=== PATIENT | male | born 1995 | race Caucasian/White ===

== ENCOUNTER → 2021-04-11 07:57 | Outpatient (CLI) | payer BC, SELFPAY ==
[2021-04-05 07:40] VITALS: BMI 28.9
--- NOTE | 2021-04-11 08:02 | CT_ITS ---
STUDY: CT ABDOMEN AND PELVIS WITH CONTRAST REASON FOR EXAM: Male, 25 years old. Epigastric pain/ Bilateral groin pain -- ATT: Epigastric/ bilateral groins RADIATION DOSAGE (If Supplied By Facility): CTDIvol = ( 11.71 ) mGy, DLP = ( 759.30 ) mGycm TECHNIQUE: Transaxial images were obtained from the dome of the diaphragm to the symphysis pubis with oral contrast. Oral and amp; IV Readi-CAT and amp; 100mL Isovue-300 was administered. Sagittal and coronal images were reconstructed. Individualized dose optimization techniques were used for this CT. COMPARISON: None. FINDINGS: The visualized lung bases are unremarkable. The visualized portions of the heart are within normal limits. Normal liver. Normal gallbladder and extrahepatic biliary system. Normal spleen. Normal pancreas. Normal bilateral adrenal glands. There is a mildly dilated right ureter down to the region of the urinary bladder although no obstructive uropathy is seen at this time. This may be secondary to a recently passed calculus. Clinical correlation is recommended. Normal left kidney. Normal visualized stomach. Normal small intestine. Normal colon. The appendix is visualized and appears normal. Normal abdominal aorta. Normal inferior vena cava. Normal retroperitoneum. Normal urinary bladder. Small benign appearing bilateral inguinal lymph nodes. Normal abdominal wall. Normal osseous structures. CT/Abdomen/Pelvis WITH Contrast IMPRESSION: Fullness of the right ureter as described. No obstructive calculus is seen. Electronically Signed: Teddy Jimenes MD at 9:10 EDT , Service support ,
== END ==
PROVIDERS: PCP Family Medicine; Referring Provider Surgery; Visit Provider Surgery
DX: R10.13 Epigastric pain (principal); R10.31 Right lower quadrant pain; R10.32 Left lower quadrant pain
CPT/HCPCS: 74177; Q9967

== ENCOUNTER → 2022-05-29 | Outpatient (CLI) | payer BC, SELFPAY ==
[2022-05-29 16:01] LABS: Absolute Lymphocyte Count 2.16 X10^3/uL (0.83-4.51); Absolute Neutrophil Count 3.7 X10^3/uL (2.0-7.7); Basophil# 0.06 X10^3/uL; Basophil% 0.9 % (0-1); Eosinophil# 0.18 X10^3/uL; Eosinophils% 2.6 % (0-5); Hematocrit 42.1 % (40-54); Hemoglobin 14.7 g/dL (13.0-16.5); Lymphocyte # 2.16 X10^3/ul (0.83-4.51); Lymphocyte % 31.6 % (19-41); Mean Corp Hgb Conc 34.9 g/dL (32-36); Mean Corpuscular Hgb 31.4 pg (27.0-32.0); Mean Platelet Vol. 9.3 fl (6.2-12.0); Monocyte# 0.67 X10^3/uL; Monocyte% 9.8 % (0-10); NRBC Flagged by Analyzer 0 % (0-5); Neutrophil # 3.74 X10^3/uL (2.7-7.7); Neutrophil % 54.8 % (47-70); Platelet Count 265 K/mm3 (150-450); RBC Distribution Width CV 11.6 % (11.6-14.6); Red Blood Count 4.68 M/mm3 (4.6-6.2); White Blood Count 6.8 K/mm3 (4.4-11.0)
[2022-05-29 16:16] LABS: Erythrocyte Sedimentation Rate 2 mm/hr (0-20)
[2022-05-29 16:54] LABS: ALB/GLOB Ratio 1.3 RATIO (0.9-2.4); AST(SGOT) 13 U/L (15-37); Alanine Aminotransfer ALT/SGPT 24 U/L (16-61); Albumin, Serum 4.3 g/dL (3.2-5.0); Alkaline Phosphatase 68 U/L (45-117); Anion Gap 3 (5-15); BUN 16 mg/dL (7-18); CRP < 2.90 mg/L (0.0-3.0); Calcium,Total 9.5 mg/dL (8.5-10.1); Chloride 106 mmol/L (98-107); EST Glomerular Filtration Rate 96 mL/min (>60); Est Glom Filt Rate - Afr Amer 116 mL/min (>60); Globulin 3.2 g/dL (2.2-4.2); Glucose 101 mg/dL (74-106); Potassium 3.8 mmol/L (3.5-5.1); Protein, Total 7.5 g/dL (6.4-8.2); Sodium Level 139 mmol/L (136-145)
[2022-05-31 15:08] LABS: Endomysial Antibody IgA Negative (Negative)
[2022-05-31 15:47] LABS: Immunoglobulin A 276 mg/dL (90-386); t-Transglutaminase IgA <2 U/mL (0-3)
== END | disposition home or self-care (01) ==
LOC: LAB 15:17
PROVIDERS: PCP Family Medicine; Visit Provider Nurse Practitioner Adult Health
DX: K21.9 Gastro-esophageal reflux disease without esophagitis (principal); R10.9 Unspecified abdominal pain
CPT/HCPCS: 36415; 80053; 82784; 83516; 85025; 85652; 86140; 86255

== ENCOUNTER 2022-05-31 12:26 | Outpatient (CLI) | payer BC, SELFPAY ==
[2022-06-04 10:43] LABS: Calprotectin, Stool 29 ug/g (0-120)
[2022-06-04 10:46] LABS: H. PYLORI STOOL AG Negative (Negative)
== END 2022-05-31 23:59 | disposition home or self-care (01) ==
LOC: LABSPEC 12:27
PROVIDERS: PCP Family Medicine; Referring Provider Nurse Practitioner Adult Health; Visit Provider Nurse Practitioner Adult Health
DX: K58.9 Irritable bowel syndrome, unspecified (principal); K21.9 Gastro-esophageal reflux disease without esophagitis; R10.9 Unspecified abdominal pain
CPT/HCPCS: 83630; 83993

== ENCOUNTER 2022-06-25 05:15 | Day surgery (SDC) | payer BC, SELFPAY ==
[2022-06-25] VITALS (7 sets, daily range): BP systolic 99–147; BP diastolic 64–82; PULSE 56–97; RESP 16–18; TEMP 36.3–36.6; O2SAT 96–100; BMI 25.0
--- NOTE | 2022-06-25 | EGD_PTH ---
PATIENT: AMELIA PINEDA LOC: EN U#:[id number] AGE/SX: 26/M ROOM: RE06/25/[address]: Dr. Eduardo Virk DO : 1995 BED: DIS: 06/25/2022 SPEC #: [id number] RECD: 06/25/22 12:36 STATUS: CASSIE REKvng #: [id number] SAVITA: 06/25/22 00:[address]: Eduardo Virk DEPT: SURGICAL PATHOLOGY RECD BY: John Ayon ENTERED: 06/25/22 12:37 SP TYPE: EGD BIOPSY OT DR: Dr. David Traylor DO Tissues: A - Duodenum, NOS B - Gastric mucous membrane C - Esophageal mucous membrane D - Ileum, NOS E - Sigmoid colon biopsy F - Rectum, NOS Procedures: Special Stain Group II Surgery Specimen Level IV Alcian Blue/PAS (control) HEADER OPERATION: Colonoscopy, EGD ([facility]) PRE-OP DIAGNOSIS: GERD, abdominal pain TISSUE SUBMITTED: A ? Duodenum biopsy, B ? Gastric body biopsy, C ? Distal esophagus biopsy, D ? Terminal ileum biopsy, E ? Sigmoid colon biopsy, F ? Rectum biopsy MICROSCOPIC DIAGNOSIS A. Duodenum, biopsy: A fragment of duodenal mucosa with mild Vijaya gland hyperplasia. B. Gastric body biopsy: Minimal gastritis. See microscopic description and comment. C. Distal esophagus, biopsy: Fragments of gastroesophageal mucosa with chronic inflammation. Intestinal metaplasia (goblet cell metaplasia) not identified. See comment. D. Terminal ileum, biopsy: Fragments of small intestinal mucosa, no pathologic diagnosis. E. Sigmoid colon, biopsy: Fragments of colonic mucosa, no pathologic diagnosis. F. Rectum, biopsy: A fragment of colonic mucosa, no pathologic diagnosis. SJ:rodri 06/26/2022 COMMENT B. The results of immunohistochemistry for Helicobacter pylori will be reported separately ([id number]). C. Alcian blue/PAS stain with matched control is used in the evaluation of the specimen. MICROSCOPIC DESCRIPTION Slides are reviewed. B. The specimen shows fragments of gastric mucosa with chronic inflammatory cell infiltrates in the lamina propria consisting of lymphocytes and plasma cells, consistent with minimal chronic gastritis. GROSS DESCRIPTION A - Received in fixative is one container labeled with the patient's name and designated duodenum biopsy. The specimen consists of one irregular fragment of light fontenot soft tissue that measures 0.5 x 0.5 x 0.1 cm. The specimen is totally submitted in one cassette. B - Received in fixative is one container labeled with the patient's name and designated gastric body biopsy. The specimen consists of multiple irregular fragments of light fnotenot soft tissue that in aggregate measure 1 x 0.3 x 0.1 cm. The specimen is totally submitted in one cassette. C - Received in fixative is one container labeled with the patient's name and designated distal esophagus biopsy. The specimen consists of two irregular fragments of light fontenot soft tissue that in aggregate measure 0.6 x 0.3 x 0.1 cm. The specimen is totally submitted in one cassette. D - Received in fixative is one container labeled with the patient's name and designated terminal ileum. The specimen consists of multiple irregular fragments of light fontenot soft tissue that in aggregate measure 0.8 x 0.3 x 0.1 cm. The specimen is totally submitted in one cassette. E - Received in fixative is one container labeled with the patient's name and designated sigmoid colon biopsy. The specimen consists of two irregular fragments of light fontenot soft tissue that in aggregate measure 0.6 x 0.3 x 0.1 cm. The specimen is totally submitted in one cassette. F - Received in fixative is one container labeled with the patient's name and designated rectum biopsy. The specimen consists of one irregular fragment of light fontenot soft tissue that measures 0.3 x 0.3 x 0.1 cm. The specimen is totally submitted in one cassette. / SJ:rg 06/25/2022 TC:3 CPT: 13724 x6, 62549
[2022-06-25] MEDS: Lactated Ringers 1,000 ML 15 ML IV (05:55)
--- NOTE | 2022-06-25 06:29 | HP.PCM_ITS ---
History and Physical Date of Admission: 06/25/22 VERONICA PINEDA, is a 26 M who presents to the office today for epigastric pain, better since starting omeprazole 40 mg daily about 2 mos ago. He describes a fullness in lower esophagus, eg when he ate sub sandwich. Acid refluxes with change in position. Alternates diarrhea and constipation, has tried dietary changes, probiotics w/o much relief. Pains in abd started 3 yrs ago, worse with heavy lifting. Epigastric pain better with PPI but has significant nausea, almost to point of vomiting. Can have RUQ pain related to bowels. Can have other pains in abd that he attributes to muscle pain. Bowels were very inconsistent, was constipated or diarrhea, no pattern. So decided to eat same thing--egg and bagel for breakfast, smoothie for lunch, meat and potatoes for dinner, fruit occas for snack. Stools can be soft, having daily BM. Some improvement since not varying his diet. Less bloated since not having constipation so much. Gets canker sores. No rash, joint pains, eye complaints. Had CT 04/2021, saw Dr Broderikc for hernias, no surgery recommended , baby boy born in November 2021, daughter is almost 3 yrs old FH: Sister IBS, dad GERD, grandmother GERD 04/11/22 CT/Abdomen/Pelvis WITH Contrast IMPRESSION: Fullness of the right ureter as described.? No obstructive calculus is seen. ROS Const Constitutional: Positive for headache(s); No fatigue ENT ENT: Positive for headache(s); No difficulty swallowing Gastro GI: Positive for abdominal pain, bloating, change in bowel habits, heartburn and nausea/dyspepsia; No belching, change in stool character, coffee ground emesis, constipation, cramping, diarrhea, difficulty swallowing, feeling full early, excessive flatus, incontinent of stools, Vomiting blood/hematemesis, Blood in stool, loose stools, Black,tarry stools, pain with swallowing, vomiting or other Musc Musculoskeletal: No joint pain Skin Skin: No yellowing of the eye or itchy eyes Neuro Neurology: Positive for headache(s) Psych Psychiatric: No anxiety and No depression Endo Endocrine: No fatigue Aller/Imm Allergy/Immunologic: No itchy eyes Henry/Lymp Hematologic/Lymphatic: No easy bleeding or easy bruising Exam Const General: cooperative, healthy appearing and comfortable Nutritional Appearance: average body habitus [facility] Head: normal to inspection Eyes General: appearance normal, both eyes and all related structures Resp Effort & Inspection: normal respiratory effort GI Inspection: normal to inspection Palpation: soft, no hepatosplenomegaly, no masses and nontender Skin General: no rashes or lesions noted Psych Mood: euthymic mood Affect: normal affect Quality Reporting Tobacco Screening ([facility] 138) Smoking Status: Former smoker Assessment and Plan Assessment and Plan (1) GERD (gastroesophageal reflux disease): ?Status:?Acute ?Plan: 26 yr old male with acid reflux, epigastric pain, as well as other abd pains which are more random, and alternating diarrhea and constipation. Acid reflux and Epigastric pain are better on omeprazole however it is causing him to have nausea. He may have IBS, but we will evaluate for IBD, celiac or other cause. Discussed DDx. Based on results we may change his med, may need increased PPI (but causes him nausea) and sucralfate. Schedule egd and colonoscopy (may be able to cancel colonoscopy) (2) Abdominal pain: ?Status:?Acute ? ? ? Orders: Orders Comprehensive Metabolic Profil 05/29/22 K21.9 - Gastro-esophageal reflu x disease without esophagitis, R10.9 - Unspecified abdominal pain ? CRP 05/29/22 K21.9 - Gastro-esophageal reflu x disease without esophagitis, R10.9 - Unspecified abdominal pain ? CBC W/Diff, Automated 05/29/22 K21.9 - Gastro-esophageal reflu x disease without esophagitis, R10.9 - Unspecified abdominal pain ? Erythrocyte Sed Rate 05/29/22 K21.9 - Gastro-esophageal reflu x disease without esophagitis, R10.9 - Unspecified abdominal pain ? Calprotectin, Stool Today K21.9 - Gastro-esophageal reflux disease without esophagitis, R10.9 - Unspecified abdominal pain ? Celiac Disease Profile 05/29/22 K21.9 - Gastro-esophageal reflu x disease without esophagitis, R10.9 - Unspecified abdominal pain ? H. PYLORI STOOL AG Today K21.9 - Gastro-esophageal reflux disease without esophagitis, R10.9 - Unspecified abdominal pain ? Stool Lactoferrin/WBC Today K21.9 - Gastro-esophageal reflux disease without esophagitis, K58.9 - Irritable bowel syndrome without diarrhea, R10.9 - Unspecified abdominal pain ? I have re-examined the patient. There are no clinical changes since date of exam.
--- NOTE | 2022-06-25 06:30 | IMM_PTH ---
PATIENT: AMELIA PINEDA LOC: EN U#:[id number] AGE/SX: 26/M ROOM: RE06/25/[address]: Dr. Eduardo Virk DO : 1995 BED: DIS: 06/25/2022 SPEC #: [id number] RECD: 06/25/22 13:47 STATUS: CASSIE REQ #: [id number] SAVITA: 06/25/22 06:[address]: Eduardo Virk DEPT: IMMUNOHISTOCHEMISTRY RECD BY: Caroline Villanueva ENTERED: 06/25/22 13:48 SP TYPE: IMMUNO OTHR DR: Dr. David Traylor, Tissues: B - Stomach, NOS Procedures: H Pylori (initial) PHYSICIAN & INSTITUTION [place] [id number] SPECIMEN INFORMATION: Tissue Source: B ? Gastric body biopsy Clinical Info: GERD, abdominal pain Specimen Number: [id number] CPT code: 47680 METHODOLOGY: Deparaffinized sections of prefer/formalin-fixed tissue or PAP/DQ stained slides are incubated with monoclonal/polyclonal antibodies/oligonucleotide probes. Localization is made via biotin free immunoperoxidase method. Appropriate controls are performed and reacted as expected. Results on target cell population are indicated in the following table: RESULTS: ANTIBODY / CLONE RESULT Block B H Pylori (polyclonal) negative These tests were developed and their performance characteristics determined by [facility]. They may not have been cleared or approved by the U.S. Food and Drug Administration. The FDA has determined that such clearance or approval is not necessary. The above immunohistochemical/dualISH markers are ordered and reviewed by the Pathologist. INTERPRETATION: B. Gastric body, biopsy: Negative for Helicobacter pylori organisms. SJ:rodri 06/27/2022
--- NOTE | 2022-06-25 07:14 | OP.EGD_ITS ---
Patient Name: Bolivar Mcdonough Procedure Date: 06/25/2022 6:19 AM Date of : 1995 Age: 26 Procedure: Upper GI endoscopy Indications: Functional Dyspepsia, Failure to respond to medical treatment Providers: Eduardo Virk DO Medicines: Monitored Anesthesia Care Patient Profile: This is a 26 year old male. Refer to note in patient chart for documentation of history and physical. Patient has symptoms of chronic abdominal cramping, chronic global abdominal pain and chronic dyspepsia. Complications: No immediate complications. Procedure: Pre-Anesthesia Assessment: - Prior to the procedure, a History and Physical was performed, and patient medications and allergies were reviewed. The patient is competent. The risks and benefits of the procedure and the sedation options and risks were discussed with the patient. All questions were answered and informed consent was obtained. Patient identification and proposed procedure were verified by the physician in the pre-procedure area. Mental Status Examination: alert and oriented. Airway Examination: normal oropharyngeal airway and neck mobility. Respiratory Examination: clear to auscultation. CV Examination: normal. Prophylactic Antibiotics: The patient does not require prophylactic antibiotics. Prior Anticoagulants: The patient has taken no previous anticoagulant or antiplatelet agents. ASA Grade Assessment: II - A patient with mild systemic disease. After reviewing the risks and benefits, the patient was deemed in satisfactory condition to undergo the procedure. The anesthesia plan was to use moderate sedation / analgesia (conscious sedation). Immediately prior to administration of medications, the patient was re-assessed for adequacy to receive sedatives. The heart rate, respiratory rate, oxygen saturations, blood pressure, adequacy of pulmonary ventilation, and response to care were monitored throughout the procedure. The physical status of the patient was re-assessed after the procedure. After obtaining informed consent, the endoscope was passed under direct vision. Throughout the procedure, the patient's blood pressure, pulse, and oxygen saturations were monitored continuously. The colonoscope was introduced through the mouth, and advanced to the second part of duodenum. The upper GI endoscopy was accomplished without difficulty. The patient tolerated the procedure well. Scope In: 6:40:53 AM Scope Out: 6:45:44 AM Total Procedure Duration Time 0 hours 4 minutes 51 seconds Findings: The Z-line was irregular and was found 39 cm from the incisors. Biopsies were taken with a cold forceps for histology. Verification of patient identification for the specimen was done. Estimated blood loss was minimal. The entire examined stomach was normal. Biopsies were taken with a cold forceps for histology. Verification of patient identification for the specimen was done. Estimated blood loss was minimal. No gross lesions were noted in the second portion of the duodenum. Biopsies were taken with a cold forceps for histology. Verification of patient identification for the specimen was done. Estimated blood loss was minimal. Impression: - Z-line irregular, 39 cm from the incisors. Biopsied. - Normal stomach. Biopsied. - No gross lesions in the second portion of the duodenum. Biopsied. Recommendation: - Discharge patient to home. - Resume previous diet. - Continue present medications. - Await pathology results. Procedure Code(s): --- Professional --- 87868, Esophagogastroduodenoscopy, flexible, transoral; with biopsy, single or multiple CPT copyright 2017 [employer]. All rights reserved. The codes documented in this report are preliminary and upon delivery table operator review may be revised to meet current compliance requirements. Eduardo Virk DO 06/25/2022 7:13:37 AM This report has been signed electronically. Number of Addenda: 1 Note Initiated On: 06/25/2022 6:19 AM Addendum Number: 1 Addendum Date: 08/09/2022 6:10:41 AM MAC was used as sedation for this procedure. Eduardo Virk DO 08/09/2022 6:10:47 AM This report has been signed electronically.
--- NOTE | 2022-06-25 07:15 | OP.CCLET_ITS ---
08/09/2022 David Traylor [address] [place] [address] Re : Upper GI endoscopy procedure for Bolivar Mcdonough Dear Dr. Traylor This procedure was performed on Saturday, June 25, 2022. My impressions and recommendations are as follows: Impressions : - Z-line irregular, 39 cm from the incisors. Biopsied. - Normal stomach. Biopsied. - No gross lesions in the second portion of the duodenum. Biopsied. Recommendations : - Discharge patient to home. - Resume previous diet. - Continue present medications. - Await pathology results. My findings are described in the full procedure note, which is enclosed. If I can be of further assistance, please feel free to contact me at . Sincerely, Eduardo Virk, 06/25/2022 7:13:37 AM This report has been signed electronically.
--- NOTE | 2022-06-25 07:21 | OP.COLON_ITS ---
Patient Name: Bolivar Mcdonough Procedure Date: 06/25/2022 6:45 AM Date of : 1995 Age: 26 Procedure: Colonoscopy Indications: Generalized abdominal pain, Clinically significant diarrhea of unexplained origin Providers: Eduardo Virk DO Medicines: Monitored Anesthesia Care Patient Profile: This is a 26 year old male. Refer to note in patient chart for documentation of history and physical. Patient has symptoms of chronic abdominal cramping, chronic global abdominal pain and chronic dyspepsia. Last Colonoscopy: none. The patient's first colonoscopy is today. Complications: No immediate complications. Procedure: Pre-Anesthesia Assessment: - Prior to the procedure, a History and Physical was performed, and patient medications and allergies were reviewed. The patient is competent. The risks and benefits of the procedure and the sedation options and risks were discussed with the patient. All questions were answered and informed consent was obtained. Patient identification and proposed procedure were verified by the physician in the pre-procedure area. Mental Status Examination: alert and oriented. Airway Examination: normal oropharyngeal airway and neck mobility. Respiratory Examination: clear to auscultation. CV Examination: normal. Prophylactic Antibiotics: The patient does not require prophylactic antibiotics. Prior Anticoagulants: The patient has taken no previous anticoagulant or antiplatelet agents. ASA Grade Assessment: II - A patient with mild systemic disease. After reviewing the risks and benefits, the patient was deemed in satisfactory condition to undergo the procedure. The anesthesia plan was to use moderate sedation / analgesia (conscious sedation). Immediately prior to administration of medications, the patient was re-assessed for adequacy to receive sedatives. The heart rate, respiratory rate, oxygen saturations, blood pressure, adequacy of pulmonary ventilation, and response to care were monitored throughout the procedure. The physical status of the patient was re-assessed after the procedure. After I obtained informed consent, the scope was passed under direct vision. Throughout the procedure, the patient's blood pressure, pulse, and oxygen saturations were monitored continuously. The colonoscope was introduced through the anus and advanced to the terminal ileum. The colonoscopy was performed without difficulty. The patient tolerated the procedure well. The quality of the bowel preparation was good. Scope In: 6:47:49 AM Scope Withdrawal Time 0 hours 8 minutes 14 seconds Scope Out: 7:06:14 AM Total Procedure Duration Time 0 hours 18 minutes 25 seconds Findings: The perianal and digital rectal examinations were normal. The sigmoid colon and splenic flexure were significantly redundant. Advancing the scope required straightening and shortening the scope to obtain bowel loop reduction. The transverse colon was mildly tortuous. A localized area of the terminal ileum was congested. Biopsies were taken with a cold forceps for histology. Verification of patient identification for the specimen was done. Estimated blood loss was minimal. An area of mildly congested mucosa was found in the rectum, in the recto-sigmoid colon and in the sigmoid colon. Biopsies were taken with a cold forceps for histology. Verification of patient identification for the specimen was done. Estimated blood loss was minimal. Impression: - Redundant colon. - Tortuous colon. - Congested mucosa in the terminal ileum. Biopsied. - Congested mucosa in the rectum, in the recto-sigmoid colon and in the sigmoid colon. Biopsied. Recommendation: - Discharge patient to home. - Resume previous diet. - Continue present medications. - Await pathology results. - Repeat colonoscopy in 5 years for surveillance. Procedure Code(s): --- Professional --- 29542, Colonoscopy, flexible; with biopsy, single or multiple CPT copyright 2017 [employer]. All rights reserved. The codes documented in this report are preliminary and upon remote medical coder review may be revised to meet current compliance requirements. Eduardo Virk DO 06/25/2022 7:21:13 AM This report has been signed electronically. Number of Addenda: 1 Note Initiated On: 06/25/2022 6:45 AM Addendum Number: 1 Addendum Date: 08/09/2022 6:10:54 AM MAC was used as sedation for this procedure. Eduardo Virk DO 08/09/2022 6:10:58 AM This report has been signed electronically.
--- NOTE | 2022-06-25 07:23 | OP.CCLET_ITS ---
08/09/2022 David Traylor [address] [facility] [place] [address] Re : Colonoscopy procedure for Bolivar Mcdonough Dear Dr. Traylor This procedure was performed on Saturday, June 25, 2022. My impressions and recommendations are as follows: Impressions : - Redundant colon. - Tortuous colon. - Congested mucosa in the terminal ileum. Biopsied. - Congested mucosa in the rectum, in the recto-sigmoid colon and in the sigmoid colon. Biopsied. Recommendations : - Discharge patient to home. - Resume previous diet. - Continue present medications. - Await pathology results. - Repeat colonoscopy in 5 years for surveillance. My findings are described in the full procedure note, which is enclosed. If I can be of further assistance, please feel free to contact me at . Sincerely, Eduardo Virk, 06/25/2022 7:21:13 AM This report has been signed electronically.
== END 2022-06-25 07:56 | disposition home or self-care (01) ==
LOC: EN 05:17 → AC 05:18
PROVIDERS: PCP Family Medicine; Referring Provider Family Medicine; Visit Provider Internal Medicine Gastroenterology
PROC: 0DJD8ZZ Inspection of Lower Intestinal Tract, Via Natural or Artificial Opening Endoscopic (ICD-10-PCS; CPT 45378; principal; 2022-06-25 06:25)
DX: K29.70 Gastritis, unspecified, without bleeding (principal); K21.00 Gastro-esophageal reflux disease with esophagitis, without bleeding; K40.20 Bilateral inguinal hernia, without obstruction or gangrene, not specified as recurrent; Q43.8 Other specified congenital malformations of intestine
CPT/HCPCS: 43239; 45380; 88305; 88313; 88342; J7120; J2405